=== PATIENT | male | born 1990 | race Caucasian/White ===

== ENCOUNTER 2022-10-07 20:52 | Emergency (ER) | payer BC ==
[2022-10-07] MEDS ORDERED: Albuterol/Ipratropium 3.0-0.5 MG/3 ML Neb Soln NEB ONE (21:27)
== END 2022-10-07 21:40 | disposition home or self-care (01) ==
LOC: MW.ED 20:52
DX: J45.21 Mild intermittent asthma with (acute) exacerbation (principal); Z76.0 Encounter for issue of repeat prescription
CPT/HCPCS: 99284; J7620-GY